=== PATIENT | female | born 1930 | race Caucasian/White ===

== ENCOUNTER 2018-08-11 10:16 | Inpatient (IN) | payer OTHER ==
[~2018-08-11] VITALS: Ht 152.4 cm; Wt 86.0 kg
[~2018-08-11 10:16] MED LIST: ACCUNEB SO1.25 MG/1; ACCUNEB0.63 MG/3 INH; ALBUTEROL2.5 MG/31 IH; ALBUTEROL2.5 MG/31 INH; AMOXICILLIN 50500 M1 PO; APAP500 PO; ASPIRIN81 M2 PO; AVELOX 400 MG400 MG PO; BENAZEPRIL HCL20 MG PO; CALCIUM 600 +1 EAC1 PO; CIPROFLOXACIN500 M3 PO; CLEOCIN HCL150 MG PO; COUMADIN 2 MG TA2 M1 PO; DILTIAZEM 24HR120 M2 PO; FUROSEMIDE 20 M20 M1 PO; KEFLEX500 MG PO; LASIX 40 MG TAB40 M2 PO; LORTAB 5-500 T1 EAC1 PO; NORCO 5-325 TA1 EACH PO; NORVASC10 MG PO; OMEPRAZOLE40 MG PO; PAXIL10 MG PO; PERCOCET 5-3251 EACH PO; POTASSIUM PO; POTASSIUM20 PO; POTASSIUM99 M1 PO; PREDNISONE; PROAIR HFA8.5 GM IH; PROTONIX 20 MG20 MG PO; PROTONIX40 M2 PO; SPIRIVA INH; SUPER B COMPLE1 EAC2 PO; SYMBICORT160 MCG/4. INH; TRAMADOL 50 MG50 MG PO; TRIAMCINOLONE A80 G2 TOP; VESICARE 5 MG TA5 M1 PO; VITAMIN E400 UNI7 PO; XARELTO15 MG PO; ZOFRAN8 MG PO
[2018-08-11 10:17] VITALS: BP 100/50
[2018-08-11 11:29] LABS: HEMATOCRIT 29.4 % (37.0-47.0); HEMOGLOBIN 8.5 gm/dL (12.0-15.0); MCHC 28.8 g/dL (28.0-37.0); MCV 69.6 fL (80.0-100.0); PLATELET COUNT 403 thou/uL (150-400); RBC 4.23 mil/uL (4.20-5.00); RDW 19.9 % (10.5-14.5); WBC 20.9 thou/uL (4.0-11.0)
[2018-08-11 11:37] LABS: ANION GAP 3 mmol/L (7-16); BUN 22 mg/dL (7-18); CALCIUM 8.5 mg/dL (8.5-10.1); CHLORIDE 99 mmol/L (98-107); CO2 38 mmol/L (21-32); CREATININE 1.1 mg/dL (0.6-1.0); GLUCOSE 162 mg/dL (74-106); POTASSIUM 4.2 mmol/L (3.5-5.1); SODIUM 140 mmol/L (136-145)
[2018-08-11 11:45] LABS: ALBUMIN 2.9 g/dL (3.4-5.0); LIPASE 208 U/L (73-393); SGOT 27 U/L (15-37); SGPT 22 U/L (30-65); TOTAL BILIRUBIN 0.7 mg/dL (<0.1-1.0); TOTAL PROTEIN 6.5 g/dL (6.4-8.2); TROPONIN-I <0.06 ng/mL (<0.06)
[2018-08-11 11:53] LABS: BE(vivo) 4.9 mmol/L (-2 to +3); HCO3 31.3 mmol/L (22.0-26.0); PCO2 58.3 mmHg (35.0-45.0); PO2 218.6 mmHg (80.0-100.0); pH 7.348 (7.360-7.450); sO2 99.4 % (92.0-98.0)
[2018-08-11 12:18] VITALS: BP 82/42
[2018-08-11 12:32] VITALS: BP 75/33
[2018-08-11 12:33] LABS: ABSOLUTE NEUTROPHILS 20.3 thou/uL (1.4-8.2); ANISOCYTOSIS 2+; PLATELET ESTIMATE NORMAL
[2018-08-11 12:34] LABS: MICROCYTES 2+
[2018-08-11 12:54] VITALS: BP 137/97
[2018-08-11] MEDS ORDERED: NEURONTIN 300300 M1 PO (13:36)
[2018-08-11 14:08] LABS: INR 3.8; PROTIME 39.5 Seconds (9.3-11.4)
--- NOTE | 2018-08-11 16:26 | NUR ---
ASSUMED PATIENT CARE FROM ED. A&OX4. HARD OF HEARING. USING BEDPAN. PATIENT WAS HYPOTENSIVE IN ED. HYPOTENSION RESOLVED UPON ARRIVAL TO FLOOR. PATIENT STATED THEY WERE DIZZY AND COULD NOT SEE AT HOME. PATIENT LIVES INDEPENDENTLY AT HOME WITH HOME O2. FAMILY HELPS PATIENT WITH MEALS AND LAUNDRY. PATIENT TAKES BREATHING TREATMENTS AT HOME. NO COMPLAINTS OF PAIN. WORKING TOWARDS DC GOALS.
[2018-08-11 16:36] VITALS: BP 99/54
[2018-08-11 20:30] VITALS: BP 104/57
--- NOTE | 2018-08-11 22:03 | EKG ---
[place] [address] [facility] [place] [address] ELECTROCARDIOGRAM REPORT Name: BABS JULIAN IJEOMA Room #: 354-P ADM IN M.R.#: [id number] Admission: 08/11/18 Attend Phys: Elliot Durán MD Discharge: Date of : [birth year] Report #: [id number] REPORT FOR: //name// [facility] ED Test Date: 2018-08-11 Test Time: 11:56:19 Pat Name: BABS JULIAN Department: Room: 354 Gender: F Consumer Insights Intern: : 1930 Requested By: Stef Wang Order Number: [id number] MD: Surinder Root Measurements Intervals [place] Rate: 89 P: FL: QRS: 81 QRSD: 104 T: 56 QT: 396 QTc: 482 Interpretive Statements Atrial fibrillation rightward axis deviation Low voltage, extremity leads Nonspecific ST-T wave changes Baseline wander and V3 Compared to ECG 01/05/2014 11:46:23 Low QRS voltage now present Electronically Signed On 08-11-2018 22:03:32 INFORMATION TECHNOLOGY SECURITY ANALYST by Surinder Root [email or web address] <ELECTRONICALLY SIGNED> By: Surinder Root MD 08/11/18 2203 [id number] Surinder Root MD /EPI
[2018-08-12] VITALS (7 sets, daily range): BP systolic 81–119; BP diastolic 49–90
--- NOTE | 2018-08-12 02:37 | NUR ---
RESTING QUIETLY TONIGHT. ENCOURAGED GETTING PULLED UP IN THE BED AND TURNING. CONTINUES ON IV FLUIDS. REMOVED FROM ISOLATION DUE TO NEGATIVE CDIFF CULTURE. SHE IS VERY FRENDLY AND TALKATIVE. ONLY ONE MICRO SMALL AMOUNT OF LIQ BM TONIGHT. NOT ENOUGH TO SEND OUT FOR AN OCCULT TEST. SHE IS PROGRESSING TOWARD DISCHRAGE GOALS. CAREPLAN REVIEWED.
[2018-08-12 07:04] LABS: CALCIUM 7.8 mg/dL (8.5-10.1); CREATININE 1.3 mg/dL (0.6-1.0)
--- NOTE | 2018-08-12 10:24 | NUR ---
ASSESSMENT: CM REVIEWED CHART AND MET WITH PATIENT AND HER DAUGHTER ALEXANDRU AT THE BEDSIDE. PT IS ALERT AND ORIENTED X4. PT WAS ADMITTED DUE TO DIARRHEA AND C-DIFF IS PENDING. PT RESIDES IN A HOUSE ALONE. PT REPORTS 3 STEPS WITH HANDRAILS TO ENTER THE HOME AND ABOUT 7 STEPS WITH HANDRAILS TO HER BEDROOM. PT REPORTS SHE HAS MULTIPLE WALKERS AT HOME (9 TOTAL). PT STATES SHE HAS A GRAB BAR AND SHOWER BENCH. PT ALSO STATES SHE HAS CONTINUOUS OXYGEN SET UP AT HOME CORNELIO SERNA AND REPORTS BEING ON 3L AT HER BASELINE. PT REPORTS HAVING [facility] IN THE PAST BUT NOT CURRENTLY. PT FEELS SHE MAY BENEFIT FROM HH AGAIN AND WANTED REFERRAL SENT TO [facility]. [facility] NOTIFIED. FAMILY IS VERY SUPPORTIVE. CM WILL CONTINUE TO FOLLOW TO ASSIST NEEDED.
[2018-08-12 10:31] LABS: MCH 20.4 pg (26.0-34.0); MCHC 29.8 g/dL (28.0-37.0); MCV 68.3 fL (80.0-100.0); RBC 3.09 mil/uL (4.20-5.00); RDW 19.8 % (10.5-14.5)
[2018-08-12 10:33] LABS: HEMATOCRIT 21.1 % (37.0-47.0); HEMOGLOBIN 6.3 gm/dL (12.0-15.0)
--- NOTE | 2018-08-12 16:31 | NUR ---
ASSESSMENT CHARTED - MEDS PER OCT - NO CO'S OF PAIN OR NAUSEA. JUANJO CLEAR LIQUID DIET ADVANCED TO REG DIET FOR DINNER. PT WITH LOW HEAM THIS A, - DR MOORE NOTIFIED - ORDER FOR 1 UNIT OF BLOOD TO BE TRANSFUSED GIVEN THIS AFTERNOON. PT UP TO THE CHAIR WITH PHYS THERAPY - AMBULATED A FEW STEPS WITH THE USE OF A WLAKER - TOOK MUCH ENCOURAGMENT TO GET PATIENT TO SIT UP IN THE CHAIR - WNATING TO GO BACK TO BED - DID SIT UP FOR APPROX 1 HOUR. PT INCONTINENT OF URINE / STRESS INCONT - BRIEFS INSITU WHEN UP - EXTERNAL CATH IN PLACE - DAUGHTER FEELING THAT THIS NEEDS TO BE TAKEN AWAY AND PATIENT NEEDS TO GET UP TO USE THE COMMODE. NO CO'S AT THE PRESENT TIME. WILL TRANSFUSE BLOOD WHEN AVIALABLE.
[2018-08-12 17:37] LABS: % SATURATION 5 % (20-39); IRON 14 ug/dL (50-170); TIBC 294 ug/dL (250-450)
[2018-08-12 18:05] LABS: FOLIC ACID 10.9 ng/mL (8.6-58.9)
[2018-08-13] VITALS (22 sets, daily range): BP systolic 95–132; BP diastolic 42–102
--- NOTE | 2018-08-13 04:38 | NUR ---
RESTING QUIETLY TONIGHT. USING THE EXTERNAL CATHETER TONIGHT, SHE IS PLANNING ON GETTING UP TO THE RESTROOM DURING THE DAY. CONTINUES ON IV FLUIDS. TRAMADOL EFFECTIVE FOR PAIN CONTROL. PROGRESSING TOWARD DISCHARGE GOALS.
--- NOTE | 2018-08-13 05:56 | NUR ---
GAVE A ONE TIME DOSE OF XANAX FOR ANXIETY. SHE HAS BEEN MOVING CONSTANLY IN BED TONIGHT. OXYGEN IS OFTEN REMOVED. RESPIRATORY RATE IS INCREASED NAD HER COLOR IS DUSKY. SPOKE WITH FATMATA, RECIEVED ORDER FOR AN ABG NOW.
[2018-08-13 06:27] LABS: BE(vivo) 3.1 mmol/L (-2 to +3); HCO3 32.8 mmol/L (22.0-26.0); PO2 107.7 mmHg (80.0-100.0); sO2 96.3 % (92.0-98.0)
[2018-08-13 06:28] LABS: PCO2 88.5 mmHg (35.0-45.0); pH 7.187 (7.360-7.450)
[2018-08-13 06:34] LABS: HEMOGLOBIN 8.1 gm/dL (12.0-15.0)
[2018-08-13 06:41] LABS: ABSOLUTE NEUTROPHILS 9.7 thou/uL (1.4-8.2); BASOPHILS 0.2 % (0.0-2.0); EOSINOPHILS 2.2 % (0.0-3.0); LYMPHOCYTES 6.7 % (24.0-44.0); MCH 21.7 pg (26.0-34.0); MCHC 30.6 g/dL (28.0-37.0); MONOCYTES 6.4 % (1.0-8.0); PLATELET COUNT 259 thou/uL (150-400); POLYS 84.5 % (36.0-66.0); RBC 3.83 mil/uL (4.20-5.00); RDW 20.7 % (10.5-14.5); WBC 11.5 thou/uL (4.0-11.0)
[2018-08-13 06:51] LABS: CALCIUM 8.2 mg/dL (8.5-10.1); CREATININE 0.8 mg/dL (0.6-1.0); POTASSIUM 4.3 mmol/L (3.5-5.1)
--- NOTE | 2018-08-13 07:21 | NUR ---
0600: PT VERY IRRITABLE AND UNSURE OF WHAT SHE NEEDED. SHE WAS VERY ANXIOUS AND NEEDED INCREASED OXYGEN, AND INCREASED BREATHING. RT NOTIFIED AND SHIPPING POINT INSPECTOR NOTIFIED. PT SENT TO ICU AFTER REVIEWING ABG'S WITH SHIPPING POINT INSPECTOR. DAUGHTER AT BEDSIDE AT TIME OF TRANSFER. ALL CARES AND NEED FOR TRANSFER EXPLAINED TO HER DAUGHTER.
--- NOTE | 2018-08-13 08:11 | NUR ---
Pt TRANSFERRED TO ICU. WILL PLACE ON HOLD AND AWAIT ORDERS TO RESUME WHEN APPROPRIATE
[2018-08-13 08:45] LABS: BE(vivo) 6.2 mmol/L (-2 to +3); HCO3 33.3 mmol/L (22.0-26.0); PO2 88.6 mmHg (80.0-100.0); sO2 95.8 % (92.0-98.0)
[2018-08-13 08:46] LABS: pH 7.324 (7.360-7.450)
[2018-08-13 08:47] LABS: PCO2 65.6 mmHg (35.0-45.0)
--- NOTE | 2018-08-13 15:01 | NUR ---
PT TRANSFERRED TO [facility] THIS MORNING AT SHIFT CHANGE R/T RESP DISTRESS AND ON BIPAP NOW. NO W/E DC PLANNED. CM AVAILABLE TO ASSIST WITH DC NEEDS AND WILL FOLLOW.
--- NOTE | 2018-08-13 15:42 | NUR ---
PT TRANSFERRED TO ICU; THEREFORE, PT IS ON HOLD FOR OCCUPATIONAL THERAPY SERVICES DUE TO CHANGE IN STATUS; O.T. CAN RESUME WITH NEW PHYSICIAN ORDERS APPROPRIATE.
--- NOTE | 2018-08-13 15:55 | NUR ---
PT TRANSFERRED TO ICU ROOM 236 THIS AM FOR FLUID OVERLOAD. PT ARRIVED ASLEEP ON BIPAP, TOLERATING BIPAP WELL. AFIB ON TELE. WHEN PT WOKE WAS A/O X 1, REQUIRED FREQUENT REORIENTATION, AFTERNOON PROGRESSED, PT A/O X 4 AND LESS FORGETFUL. PT'S DAUGHTER AT BEDSIDE AND AWARE OF TRANSFER. ABG IMPROVED, PT OFF BIPAP AND ON 3-4L NC.
--- NOTE | 2018-08-13 18:30 | NUR ---
PT HAD INCREASE SOA AFTER EATING DINNER. PLACED ON BIPAP FOR APPROX 30 MINUTES AND PT REQUESTED TO TAKE OFF. PT ON 4L NC, CONT TO HAVE INCREASED WORK OF BREATHING, SATS >92%.
[2018-08-14] VITALS (19 sets, daily range): BP systolic 114–142; BP diastolic 59–78
[2018-08-14 04:43] LABS: BE(vivo) 10.1 mmol/L (-2 to +3); HCO3 38.5 mmol/L (22.0-26.0); PO2 91.3 mmHg (80.0-100.0); sO2 95.6 % (92.0-98.0)
[2018-08-14 04:44] LABS: PCO2 82.3 mmHg (35.0-45.0); pH 7.288 (7.360-7.450)
--- NOTE | 2018-08-14 06:00 | NUR ---
A VERY DELIGHTFUL LITTLE LADY. AWAKE AND ALERT BRUSH. PT IS ON BIPAP NOW. BUT EARLIER PT COULD ONLY JUANJO THE BIPAP FOR APPROX 10 MINUTES STATED IT WAS SUFFOCATING HER. LASIX 40 MG IV GIVEN. 2000 CC UO THIS SHIFT. REMAINS IN AFIB. LUNGS DIMINISHED. CRITICAL ABGS THIS AM. CALLED TO POUCH MAKING MACHINE OPERATOR Aamir SMITH WILL CONT TO MONITOR
[2018-08-14 07:45] LABS: HEMATOCRIT 28.3 % (37.0-47.0); HEMOGLOBIN 8.7 gm/dL (12.0-15.0); MCH 22.1 pg (26.0-34.0); MCHC 30.7 g/dL (28.0-37.0); MCV 71.7 fL (80.0-100.0); RBC 3.94 mil/uL (4.20-5.00); RDW 20.9 % (10.5-14.5)
[2018-08-14 07:54] LABS: CALCIUM 8.8 mg/dL (8.5-10.1); CREATININE 0.9 mg/dL (0.6-1.0); POTASSIUM 4.1 mmol/L (3.5-5.1)
--- NOTE | 2018-08-14 16:40 | NUR ---
PT IS ALERT AND ORIENTED X4. FORGETFULL AT TIMES. LUNGS ARE CLEAR TO COARSE IN BASES BIALTERAL. A FIB ON THE CARDIAC MONIOTR . EATING A REGULAR DIET. PT HAS A FEMALE CATHETER. ON O2 AT 5LITERS NASAL CANULA OXYGEN SATURATION IS 94 PERCENT. HARD OF HEARING AT TIMES. UP TO CHAIR WITH NURSING STAFF ASSISTANCE. FAMILY AT BEDSIDE FOR SUPPORT. WILL CONTINUE TO ASSESS AND MONITOR PER NURSING
[2018-08-15 03:09] VITALS: BP 145/88
--- NOTE | 2018-08-15 05:13 | NUR ---
POC WITH IVPB ANTIBIOTICS INFUSING. PT WAS ON BIPAP FOR APPROX 5 1/2 HOURS THIS EVENING. SHE TOOK MASK OFF AND REQUESTED TO BACK ON 6 LITERS VIA NC. FEMALE EXTERNAL CATH IN PLACE AND FUNCTIONING. PT CAN HELP ROTATE AND MOVE HER SELF IN BED. HOURLY ROUNDING. PT CAN ALSO CALL APPROPRIATELY WITH CALL LIGHT. VSS AND OXYGEN SAT IS ABOVE 90. REPLACED FINGER PROBE. PT STATES NO PAIN OR NAUSEA.
[2018-08-15 06:24] LABS: HEMATOCRIT 27.5 % (37.0-47.0); HEMOGLOBIN 8.4 gm/dL (12.0-15.0); MCH 21.9 pg (26.0-34.0); MCHC 30.7 g/dL (28.0-37.0); MCV 71.6 fL (80.0-100.0); RBC 3.85 mil/uL (4.20-5.00); RDW 21.3 % (10.5-14.5); WBC 8.3 thou/uL (4.0-11.0)
[2018-08-15 06:36] LABS: PROTIME 17.1 Seconds (9.3-11.4)
[2018-08-15 06:37] LABS: INR 1.6
[2018-08-15 06:45] LABS: CALCIUM 8.9 mg/dL (8.5-10.1); CREATININE 0.9 mg/dL (0.6-1.0); POTASSIUM 4.2 mmol/L (3.5-5.1)
[2018-08-15 07:31] VITALS: BP 144/86
[2018-08-15 11:18] VITALS: BP 136/84
[2018-08-15 16:34] VITALS: BP 147/99
--- NOTE | 2018-08-15 17:56 | NUR ---
PATIENT REMAINS ON OXYGEN 4L AND O2 SAT IS GREATER THAN 94%. SHE IS ALERT ORIENTED X4. DOES NOT SEEM TO BE IN PAIN AT THIS TIME. WILL CONT WITH PLAN OF CARE.
[2018-08-15 19:30] VITALS: BP 140/82
[2018-08-16] VITALS (8 sets, daily range): BP systolic 135–172; BP diastolic 77–120
--- NOTE | 2018-08-16 05:14 | NUR ---
Patient making slow progress towards outcome goals. Tolerated BIPAP tonight sat 95%. Vital signs and rhythm stable. Dood pain conteol with Tramadol. High fall risk, precautions in place. Uses call light appropriately for needs. Has periods of anxiety requiring a lot of TLC.
[2018-08-16 11:25] LABS: HEMATOCRIT 29.9 % (37.0-47.0); HEMOGLOBIN 9.2 gm/dL (12.0-15.0); MCH 22.1 pg (26.0-34.0); MCHC 30.8 g/dL (28.0-37.0); MCV 71.9 fL (80.0-100.0); PLATELET COUNT 282 thou/uL (150-400); RBC 4.15 mil/uL (4.20-5.00); RDW 22.6 % (10.5-14.5); WBC 11.6 thou/uL (4.0-11.0)
[2018-08-16 11:36] LABS: CALCIUM 9.2 mg/dL (8.5-10.1); CREATININE 1.3 mg/dL (0.6-1.0); POTASSIUM 4.2 mmol/L (3.5-5.1)
[2018-08-16 12:04] LABS: ABSOLUTE NEUTROPHILS 10.7 thou/uL (1.4-8.2); NUCLEATED RBCS 2 /100WBC
[2018-08-16 12:14] LABS: ANISOCYTOSIS 3+; HYPOCHROMASIA 2+; MICROCYTES 1+
[2018-08-16 12:15] LABS: OVALOCYTES FEW
[2018-08-17 04:25] LABS: CREATININE 1.1 mg/dL (0.6-1.0); HEMATOCRIT 26.7 % (37.0-47.0); HEMOGLOBIN 8.4 gm/dL (12.0-15.0); MCH 22.4 pg (26.0-34.0); MCHC 31.3 g/dL (28.0-37.0); MCV 71.4 fL (80.0-100.0); RBC 3.74 mil/uL (4.20-5.00); RDW 22.7 % (10.5-14.5); WBC 9.4 thou/uL (4.0-11.0)
[2018-08-17 04:50] VITALS: BP 90/55
[2018-08-17 05:10] VITALS: BP 143/95
--- NOTE | 2018-08-17 05:44 | NUR ---
BIPAP WAS ON THE PT FROM 2130 TO 0500. PT TOLERATED IT WELL. URINE OUTPUT WAS 850. FOLLOWING POC FOR IVPB ANTIBIOTICS. PT USES CALL LIGHT EFFECTIVELY AND CAN STATE HER NEEDS. PT BLOOD PRESSURE A LITTLE ELEVATED, WILL CONTINUE TO FOLLOW.
[2018-08-17 08:09] VITALS: BP 155/95
--- NOTE | 2018-08-17 08:53 | NUR ---
ASSUMED CARE OF PT AROUND 0715, MARYANNE W/ACTIVITY, A&0X4, ASKS MANY QUESTIONS BEFORE GETTING THE ANSWERS, THEN APOLOGIZES FOR ASKING QUESTIONS, ENCOURAGED HER TO ASK ANYTHING WE ARE HERE FOR HER. WANTS HER HS BENAZ FOR HTN FOR HS HERE IN THE HOSPITAL. NOT ON EMAR BUT IN MED REQ, WILL CALL PHYSICIAN TO ASK. B/P ARE HIGHER THAN THEY ARE FOR HER, PER HER REPORT. HAS CONT PULSE OX ON, LET HER KNOW THAT IS FOR HER HS BIPAP IF SHE'D LIKE TO REMOVE. SHE DECLINES AT THIS TIME SHE IS EATING. HAS FEMALE EXT CATHETER W/ALICE URINE RETURN, MM HG SET AT 80-90, DROPPED DOWN A LITTLE LOWER, COUGH, ENCOURAGED W/DEEP SLOW INHALATIONS/EXHALATIONS. ENCOURAGED HER TO USE CALL LIGHT FOR ANY NEEDS
[2018-08-17 11:59] VITALS: BP 132/77
--- NOTE | 2018-08-17 12:37 | NUR ---
PT'S STOOL: ADMITTED W/DIARRHEA, HASN'T HAD BM SINCE, STATES SHE HASN'T HAD ANY APPETITE NOR HAS SHE BEEN UP AND AROUND
--- NOTE | 2018-08-17 13:01 | NUR ---
Following for d/c planning needs. Pt evaluated by [facility]. Awaiting insurance authorization. Pt and daughter given list of SNF in the event insurance denies rehab.
[2018-08-17 15:58] VITALS: BP 124/75
[2018-08-17 19:51] VITALS: BP 128/50
[2018-08-18 04:08] LABS: CALCIUM 8.7 mg/dL (8.5-10.1); CREATININE 1.3 mg/dL (0.6-1.0); POTASSIUM 4.1 mmol/L (3.5-5.1)
[2018-08-18 04:10] LABS: HEMATOCRIT 26.9 % (37.0-47.0); HEMOGLOBIN 8.4 gm/dL (12.0-15.0); MCH 22.6 pg (26.0-34.0); MCHC 31.3 g/dL (28.0-37.0); MCV 72.4 fL (80.0-100.0); RBC 3.71 mil/uL (4.20-5.00); RDW 22.5 % (10.5-14.5); WBC 9.8 thou/uL (4.0-11.0)
--- NOTE | 2018-08-18 04:46 | NUR ---
PATIENT IS PROGRESSING SLOWLY IN HER CARE PLAN. VITAL SIGNS STABLE WITH PATIENT HAVING NO COMPLAINTS OF NAUSEA. PATIENT DID COMPLAIN OF CHRONIC PAIN IN NECK AND SHOULDER WHICH WAS TREATED WITH MEDICATION AND REPOSITIONING. FULLY ORIENTED, PATIENT IS ABLE TO PARTICIPATE IN CARE AND CALL APPROPRIATELY FOR NEEDS. BREATHING WAS STABLE EVIDENCED BY READINGS ON CONTINUOUS PULSE OX. PATIENT WAS ABLE TO TOLERATE BIPAP OVERNIGHT. NURSE WILL ATTEMPT TO MOVE PATIENT TO CHAIR PRIOR TO SHIFT CHANGE IF SHE IS WILLING. CONTINUE PLAN OF CARE.
[2018-08-18 05:20] VITALS: BP 139/70
[2018-08-18 08:08] VITALS: BP 143/117
--- NOTE | 2018-08-18 09:13 | NUR ---
5 [place] RESOURCE EFFICIENCY MANAGER (FILIBERTO) REQUESTED AUTHORIZATION FOR ACUTE INPATIENT REHAB UNIT STAY ON 08/17/2018. THIS DATE, 08/18/18, RESOURCE EFFICIENCY MANAGER ([place]) PHONES [facility] TO CHECK ON STATUS OF REQUEST. SPOKE WITH LIONEL CHAVARRIA ([phone]) WHO STATES THIS CASE IS STILL IN REVIEW AND THAT SHE IS UNSURE, HOWEVER, HOPEFUL, THAT A DETERMINATION WILL BE MADE THIS DATE. WILL AWAIT DETERMINATION FROM [facility].
--- NOTE | 2018-08-18 09:55 | 2DMMODE ---
[facility] [address] [place] [address] 2 D/M-MODE ECHOCARDIOGRAM Name: BABS JULIAN SAINT PETER Room #: 359-P ADM IN M.R.#: [id number] Admission: 08/11/18 Attend Phys: Elliot Durán MD Discharge: Date of : [birth year] Date of Service: 08/18/18 0954 Report #: [id number] THIS REPORT FOR: //name// APPROVED REPORT Study performed: 08/18/2018 09:03:50 EXAM: Comprehensive 2D, Doppler, and color-flow Echocardiogram Patient Location: Bedside Room #: 359 Status: routine BSA: 1.83 HR: 105 bpm BP: 143/117 mmHg Rhythm: Atrial Fibrillation Other Information Study Quality: Adequate Indications Fluid overload, PHTN, CHF, respiratory failure. Hx: Afib, severe COPD, HTN. 2D Dimensions RVDd: 43.81 mm IVSd: 10.85 (7-11mm) LVOT Diam: 19.36 (18-24mm) LVDd: 38.94 mm PWd: 10.66 (7-11mm) LVDs: 25.58 (25-40mm) Aortic Root: 28.86 mm Volumes Left Atrial Volume (Systole) Single Plane 4CH: 69.46 mL Single Plane 2CH: 67.01 mL LA ESV Index: 40.00 mL/m2 Aortic Valve AoV Peak Anthony.: 1.68 m/s AO Peak Gr.: 11.30 mmHg LVOT Max P.63 mmHg LVOT Max V: 1.19 m/s JER Vmax: 2.08 cm2 Mitral Valve MV Decel. Time: 189.79 ms MV E Max Anthony.: 1.49 m/s [facility] [address] [place] [address] 2 D/M-MODE ECHOCARDIOGRAM Name: BABS JULIAN SAINT PETER Room #: 359-P [facility] IN ..#: [id number] Admission: 08/11/18 Attend Phys: Elliot Durán MD Discharge: Date of : [birth year] Date of Service: 08/18/18 0954 Report #: [id number] Pulmonary Valve PV Peak Anthony.: 1.10 m/s PV Peak Gr.: 4.85 mmHg Tricuspid Valve TR Peak Anthony.: 3.15 m/s RAP Estimate: 5.00 mmHg TR Peak Gr.: 40.00 mmHg PA Pressure: 45.00 mmHg Left Ventricle The left ventricle is normal size. There is normal LV segmental wall motion. There is normal left ventricular wall thickness. Left ventricular systolic function is normal. LVEF is 60-65%. This study is not technically sufficient to allow evaluation of the LV diastolic function due to atrial fibrillation. Right Ventricle The right ventricle is normal size. The right ventricular systolic function is normal. Atria Left atrium is moderately dilated. Right atrium is moderately dilated. Aortic Valve The aortic valve is mildly sclerotic, trileaflet. Trace aortic regurgitation. There is no aortic valvular stenosis. Mitral Valve Mitral valve leaflets are mildly thickened. Moderate mitral annular calcification Mild mitral regurgitation. No evidence of mitral valve stenosis. Tricuspid Valve The tricuspid valve is normal in structure. Mild to moderate tricuspid regurgitation. Estimated PAP is 45 mmHg. Pulmonic Valve The pulmonary valve is normal in structure. Trace pulmonic regurgitation. Great Vessels The aortic root is normal in size. Ascending aorta is not well visualized. IVC is normal in size and collapses >50% with inspiration. [facility] [address] [place] [address] 2 D/M-MODE ECHOCARDIOGRAM Name: BABS JULIAN IJEOMA Room #: 359-P ADM IN M.R.#: [id number] Admission: 08/11/18 Attend Phys: Elliot Durán MD Discharge: Date of : [birth year] Date of Service: 08/18/18 0954 Report #: [id number] Pericardium There is no pericardial effusion. <Conclusion> Left ventricular systolic function is normal. There is normal LV segmental wall motion. LVEF 60-65%. Both atria are moderately dilated. The aortic valve is mildly sclerotic, trileaflet. Trace aortic regurgitation. Mitral valve leaflets are mildly thickened. Moderate mitral annular calcification Mild mitral regurgitation. Mild to moderate tricuspid regurgitation. Estimated pulmonary artery pressure of 45 mmHg. There is no pericardial effusion. <ELECTRONICALLY SIGNED> By: Williams Marquez MD, FACC 08/18/18953 3 3 Williams Marquez MD, FAC /INF
[2018-08-18 11:34] VITALS: BP 120/73
--- NOTE | 2018-08-18 13:47 | NUR ---
Nutrition: pt admitted with SOA, diarrhea (resolved), HTN. Seen due to LOS. Chart reviewed. Pt reports adequate appetite and no recent weight changes. Pt with hx CHF, recent increased swelling in legs. Watches Na+ at home but prefers to be on regular diet here. Would recommend heart healthy diet. Otherwise low risk.
--- NOTE | 2018-08-18 16:00 | NUR ---
ON-GOING ASSESSMENT: CM REVIEWED CHART AND MET WITH PATIENT AT THE BEDSIDE. CM WAS NOTIFIED BY Shanelle DUNNE THAT INSURANCE IS REQUESTING FURTHER IN-DETAIL PT/OT EVALS. 5NLIASON STATING SHE HAS REQUESTED PT/OT TO GO BACK IN AND SEE PATIENT. CM MET WITH PATIENT AT THE BEDSIDE AND DISCUSSED. PT STATING SHE IS REALLY HOPEFUL SHE WILL BE ABLE TO GO TO ACUTE REHAB AND REPORTS SHE FEELS SHE REALLY NEEDS IT. CM CONTACTED PATIENTS DAUGHTER TO UPDATE. CM WILL CONTINUE TO FOLLOW TO ASSIST NEEDED.
[2018-08-18 16:30] VITALS: BP 114/72
--- NOTE | 2018-08-18 18:45 | NUR ---
Assumed care of Pt at 0700. Pt alert and oriented in no acute distress, feels that swelling is worsening. breathing comfortably on home dose O2. dim/crackles to auscultation. physician notified - brian vega ordered - IV abx d/c'd. up w/ 1 assist to [facility]. family at bedside. anticipating d/c to Rehab soon. pt progressing toward poc goals.
[2018-08-18 19:07] VITALS: BP 145/61
[2018-08-19 03:27] VITALS: BP 140/69
--- NOTE | 2018-08-19 03:43 | NUR ---
ASSUMED CARE AT 1900. PT AO X 4. PAIN 6/10, PRN TRAMADOL. WAS ON 3 L NC AND BIPAP DURING THE NIGHT. UTILIZING FEMALE EXTERNAL CATHETER FOR INCONTINENCE. AFIB ON MONITOR. IRA HORSE OFF DURING THE NIGHT. PT SLEPT COMFORTABLY THROUGHT THE NIGHT. WILL FOLLOW POC.
[2018-08-19 08:05] VITALS: BP 137/92
[2018-08-19 10:12] LABS: HEMATOCRIT 31.2 % (37.0-47.0); HEMOGLOBIN 9.3 gm/dL (12.0-15.0); MCH 22.3 pg (26.0-34.0); MCV 74.5 fL (80.0-100.0); RBC 4.19 mil/uL (4.20-5.00); RDW 24.1 % (10.5-14.5); WBC 12.2 thou/uL (4.0-11.0)
[2018-08-19 10:25] LABS: CREATININE 1.4 mg/dL (0.6-1.0); POTASSIUM 4.7 mmol/L (3.5-5.1)
--- NOTE | 2018-08-19 10:31 | NUR ---
5 [place] LEAD MANUFACTURING TECHNICIAN REQUESTED AUTHORIZATION WITH [facility] FOR AN ACUTE INPATIENT REHAB UNIT STAY; LEFT VOICE MAIL FOR LIONEL YESTERDAY, 08/18/18, INDICATING NEW PT AND OT NOTES WERE AVAILABLE WELL PLAN FOR GI TO MONITOR H&H. PHONED [facility] AGAIN THIS A.M. TO ENSURE REQUEST WAS RECEIVED; LEFT VOICE MAIL FOR LIONEL AT [phone]. WILL CONTINUE TO AWAIT DETERMINATION FROM [facility] [employer]. THANK YOU FOR THIS REFERRAL.
--- NOTE | 2018-08-19 15:21 | NUR ---
PT ALERT AND ORIENTED TIMES FOUR. VSS, 97%4L, AFIB CONTROLLED ON TELE. PT C/O THIGH PAIN, PRN PAIN MEDICATION GIVEN WITH GOOD RELEIF. PT WORKED WELL WITH PT/OT TODAY UP SITTING IN THE CHAIR OR MOST OF THE SHIFT. PT TOLERATES MEDS AND MEALS. FAMILY AT BEDSIDE. PT SLOWLY PROGRESSING TOWRADS POC GOALS.
[2018-08-19 15:26] VITALS: BP 133/75
--- NOTE | 2018-08-19 15:54 | NUR ---
ON-GOING ASSESSMENT: CM SPOKE WITH 5N LIASON WHO STATES SHE WAS WAITING TO SPEAK WITH ATTENDING INSURANCE HAD QUESTIONS REGARDING PLANS OF CARE FOR PATIENT. ATTENDING STATING PATIENT IS NOT MEDICALLY READY FOR [facility] TODAY CARDS AND PULM CONSULTED. CM WILL CONTINUE TO FOLLOW.
[2018-08-19 19:55] VITALS: BP 119/77
[2018-08-20 04:55] VITALS: BP 113/67
--- NOTE | 2018-08-20 05:19 | NUR ---
PT MAKING SLOW PROGRESS TOWARDS GOALS. PT CTA BL UPPER LOBES AND FAINTLY COARSE SOUNDS BL LOWER LOBES. ON O2 AT 4L PER NC, BIPAP OVERNIGHT. HAS DENIED ANY SOA WHILE AT REST. HAS BEEN ABLE TO SPEAK IN FULL SENTENCES WITH SLIGHT SOA NOTED. 1-2+ BL LE EDEMA NOTED.
[2018-08-20 05:33] LABS: HEMATOCRIT 29.7 % (37.0-47.0); HEMOGLOBIN 8.9 gm/dL (12.0-15.0); MCH 22.1 pg (26.0-34.0); MCHC 29.9 g/dL (28.0-37.0); RBC 4.01 mil/uL (4.20-5.00); RDW 24.1 % (10.5-14.5); WBC 13.8 thou/uL (4.0-11.0)
[2018-08-20 05:47] LABS: CALCIUM 9.2 mg/dL (8.5-10.1); CREATININE 1.3 mg/dL (0.6-1.0); MAGNESIUM 2.1 mg/dL (1.8-2.4); POTASSIUM 4.3 mmol/L (3.5-5.1)
[2018-08-20 07:32] VITALS: BP 138/84
--- NOTE | 2018-08-20 09:52 | NUR ---
5 [place] ABRASIVE MIXER HELPER PHONES [employer] ( ) TO INITIATE AUTHORIZATION FOR AN ACUTE INPATIENT REHAB UNIT STAY. SPOKE WITH MAX AT 0945 WHO PROVIDES THE FOLLOWING PENDING CASE #: [id number]. ADDITIONALLY PHONED LIONEL, [facility], AT [phone]. LEFT VOICE MAIL MESSAGE FOR LIONEL NOTIFYING HER THAT WE ARE REQUESTING AUTHORIZATION FOR AN ACUTE INPATIENT REHAB UNIT STAY EFFECTIVE TODAY, 08/20/2018. PROVIDED PENDING CASE NUMBER. DR. YANG AND GERMAN ABBASI, FINISH ROLLS OPERATOR INDICATE PATIENT IS MEDICALLY STABLE FOR ACUTE REHAB UNIT THIS DATE, 08/20/18. WILL AWAIT DETERMINATION FROM [employer]. THANK YOU FOR THIS REFERRAL.
[2018-08-20 11:20] VITALS: BP 112/70
--- NOTE | 2018-08-20 13:33 | NUR ---
5N [place] OPERATOR PHONES LIONEL PICHARDO, AT [phone] TO CHECK THE STATUS OF REQUEST FOR IRF STAY AT APPROXIMATELY 1325. LIONEL INDICATES CLINICAL REVIEW IS IN PROCESS AND CASE HAS NOT YET GONE TO THE SOFTWARE TEST AUTOMATION ENGINEER. WILL CONTINUE TO AWAIT MARINO'S DETERMINATION.
--- NOTE | 2018-08-20 14:12 | NUR ---
ON-GOING ASSESSMENT: CM SPOKE WITH 5N VIBHA WHO STATES THEY SUBMITTED AGAIN FOR AUTH THIS AM. PT IS TO DISCHARGE TO [facility] ACUTE [facility]HAB PENDING INSURANCE AUTH. CM WILL CONTINUE TO FOLLOW.
--- NOTE | 2018-08-20 15:48 | NUR ---
RECEIVED VOICE MAIL MESSAGE FROM LIONEL PICHARDO ([phone]) STATING THE CONTROLLER OPERATIONS AND HR MANAGER HAS DENIED AN ACUTE INPATIENT REHAB UNIT STAY. STATED THAT THE PATIENT'S THERAPY NEEDS CAN BE MET IN A DETENTION FACILITY ENVIRONMENT. OFFERED [id number] REVIEW WITH PHYSICIAN; TO SCHEDULE [id number], PHONE [phone]. [id number] MUST BE COMPLETED BY NOON ON 08/23/18.
[2018-08-20 16:00] VITALS: BP 119/71
--- NOTE | 2018-08-20 18:30 | NUR ---
ASSUMED PATIENT CARE AT 0700. A/O X4. PLEASANT. UP TO CHAIR MOST TIME. BLE 3+ EDEMA. TOLERATED ON 4L/NC. UP WALK WITH PT. PROGRESSING TOWARDS POC GOALS.
[2018-08-20 19:30] VITALS: BP 114/66
[2018-08-21 03:40] VITALS: BP 127/82
[2018-08-21 05:37] LABS: HEMATOCRIT 32.2 % (37.0-47.0); HEMOGLOBIN 9.6 gm/dL (12.0-15.0); MCH 22.4 pg (26.0-34.0); MCHC 29.6 g/dL (28.0-37.0); MCV 75.5 fL (80.0-100.0); RBC 4.27 mil/uL (4.20-5.00); RDW 25.3 % (10.5-14.5); WBC 14.7 thou/uL (4.0-11.0)
[2018-08-21 05:51] LABS: CALCIUM 9.1 mg/dL (8.5-10.1); CREATININE 1.1 mg/dL (0.6-1.0); POTASSIUM 4.8 mmol/L (3.5-5.1)
--- NOTE | 2018-08-21 06:33 | NUR ---
ASSUMED CARE OF PT AT 1900. A&Ox4, COOPERATIVE. VS STABLE. LUNG SOUNDS WHEEZY AND DIMINISHED. ON BIPAP OVER NOC, TOLERATED WELL. 3+ SUNIL LE/FOOT EDEMA AFTER SLEEPING W/ FEET ELEVATED ON PILLOWS. PROGRESSING WELL TOWARDS POC GOALS.
[2018-08-21 08:06] VITALS: BP 122/71
[2018-08-21 12:25] VITALS: BP 128/76
[2018-08-21 12:44] VITALS: BP 122/65
[2018-08-21 15:26] VITALS: BP 116/77
--- NOTE | 2018-08-21 16:15 | NUR ---
care of pt assumed this am @ 0700. pt verbalized her desire to be more active today, so that it will help her transition back home quicker and healthier. pt noted to ambulate w/ pt today (use of o2, walker and gait belt) in hallways. pt ambulated w/ rn after lunch today (50 feet before she became soa and requested to go back to her room). pt sat up in her chair for lunch today (~3.5 hours). pt requested brian hose on to help w/ the edema she has in her les, but pt request brian hose off when she goes to be tonight. pt aware of her need to observe her po fluid intake as it relates to her edema and chf. pt w/ soa w/ exertion, o2 @ 3-4 lt per nc today. pt to have bipap w/ continuous oximetry monitoring at [facility]. new iv access obtained today to rt hand due to leaking from insertion site of old iv access site (rt wrist). pt has called food service lead to make adjustments to her menu items today. pt w/ effective use of female external cathater and briefs.
[2018-08-21 20:15] VITALS: BP 128/75
--- NOTE | 2018-08-22 04:34 | NUR ---
ASSUMED CARE OF PT AT 1900. A&Ox4, COOPERATIVE. VS STABLE DOCUMENTED, CONTINUES A FIB ON TELE. 4L VIA NC DURING DAY, AND BIPAP AT OVER NOC, TOLERATING WELL. CONT PULSE OX W/ BIPAP, SAT'S 98-99%. IRA HOSE OFF OVER NOC. BLE ELEVATED ON PILLOWS. PT IS LIMITING HER INTAKE OF FLUIDS. NO ACUTE DISTRESS THIS SHIFT. PROGRESSING WELL TOWARDS POC GOALS.
[2018-08-22 05:00] VITALS: BP 140/97
[2018-08-22 06:03] LABS: HEMATOCRIT 31.4 % (37.0-47.0); HEMOGLOBIN 9.6 gm/dL (12.0-15.0); MCHC 30.6 g/dL (28.0-37.0); MCV 75.2 fL (80.0-100.0); RBC 4.18 mil/uL (4.20-5.00); RDW 26.1 % (10.5-14.5); WBC 13.7 thou/uL (4.0-11.0)
[2018-08-22 06:09] LABS: CREATININE 1.1 mg/dL (0.6-1.0); MAGNESIUM 1.9 mg/dL (1.8-2.4); POTASSIUM 4.7 mmol/L (3.5-5.1)
[2018-08-22 08:05] VITALS: BP 131/69
[2018-08-22 12:07] VITALS: BP 135/62
[2018-08-22 16:49] VITALS: BP 144/69
--- NOTE | 2018-08-22 18:16 | NUR ---
ASSUMED PATIENT CARE AT 0700. A/O X4. WALK WITH PATIENT THREE TIMES FROM ROOM TO THE END OF HALLWAY THEN BACK ROOM. ELEVATED BLE. 2+ EDEMA BLE. TOLERATED ON 4L/NC. SOB WITH EXERTION. PROGRESSING TOWARDS POC GOALS.
[2018-08-22 19:20] VITALS: BP 123/58
[2018-08-23 04:15] VITALS: BP 155/91
[2018-08-23 04:37] LABS: HEMOGLOBIN 9.1 gm/dL (12.0-15.0); MCHC 30.2 g/dL (28.0-37.0); MCV 75.9 fL (80.0-100.0); RBC 3.94 mil/uL (4.20-5.00); RDW 26.8 % (10.5-14.5); WBC 14.1 thou/uL (4.0-11.0)
[2018-08-23 04:52] LABS: CALCIUM 8.9 mg/dL (8.5-10.1); CREATININE 1.1 mg/dL (0.6-1.0); MAGNESIUM 1.9 mg/dL (1.8-2.4); POTASSIUM 4.3 mmol/L (3.5-5.1)
--- NOTE | 2018-08-23 07:12 | NUR ---
PT TOOK A WALK TONIGHT WITH NURSE AID. SHE SAT AT EDGE OF BED DURING SHIFT CHANGE THEN ASKED FOR A WALK ABOUT TWO HOURS AFTER SITTING AT EDGE OF THE BED. SHE COMPLAINED THAT HER LEG RT LEG WAS ACHING AFTER HER WALK. SHE TOOK A TRAMADOL AND WENT TO SLEEP WITH HER CPAP. NO ROUSING THROUGH THE NIGHT. STATED THAT SHE SLEPT WELL TO PIG MACHINE CRANE OPERATOR NURSE.
[2018-08-23 07:30] VITALS: BP 131/74
--- NOTE | 2018-08-23 10:18 | NUR ---
ON-GOING ASSESSMENT: CHRIS WAS NOTIFIED BY Shanelle DUNNE THAT [facility] HAS BEEN DENIED BY INSURANCE AND A PEER TO PEER CAN BE OFFERED IF ATTENDING CALLS BY 12PM Thursday08/23/18. CM REVIEWED WITH ATTENDING AND PLAN IS TO COMPLETE THE PEER TO PEER TODAY. CM CONTACTED PEER TO PEER LINE [phone] AT 10:09 TO SCHEDULE PEER TO PEER WITH OUR ATTENDING AND LEFT HIS CONTACT INFORMATION. RESULTS OF PEER TO PEER ARE PENDING. CM REACHED OUT TO PATIENTS DAUGHTER AND IF 5[facility] ACUTE REHAB DENIAL IS UPHELD, SHE WANTED A REFERRAL SENT TO [facility] AND [facility] BACKUP. CM FAXED REFERRALS. CM WILL CONTINUE TO FOLLOW PENDING RESULTS OF PEER TO PEER.
[2018-08-23 11:21] VITALS: BP 101/61
[2018-08-23 15:10] VITALS: BP 98/51
--- NOTE | 2018-08-23 18:15 | NUR ---
ASSUMED PATIENT CARE AT 0700. A/O X4. UP WALK IN HALLWAY WITH WALKER. DENIES PAIN. SOB WITH EXERTION. PROGRESSING TOWARDS POC GOALS.
[2018-08-23 20:20] VITALS: BP 126/80
--- NOTE | 2018-08-24 04:49 | NUR ---
BIPAP BEING TOLERATED WELL TONIGHT BY PT. PT CAN STATE THAT IT IS GETTING EASIER EVERY NIGHT TO ALLOW MORE TIME ON IT. FOLLOWING POC AND KEEPING BED AT 30 DEGREES. EXTERNAL CATH IS IN PLACE AND WORKING. PT STATES NO N/V. ORAL PAIN MEDICATION GIVEN 1X. HOURLY ROUNDING.
[2018-08-24 06:10] VITALS: BP 141/63
[2018-08-24 07:25] VITALS: BP 135/69
--- NOTE | 2018-08-24 10:14 | NUR ---
ON-GOING ASSESSMENT: CM REVIEWED CHART AND SPOKE WITH ATTENDING WHO STATES THAT DENIAL FOR [facility] WAS UPHELD DUE UNCERTANTITY ABOUT FAMILY SUPPORT AT HOME. PATIENT HAS VERY GOOD FAMILY SUPPORT. PATIENTS DAUGHTER PHONG IS A RESPIRATORY THERAPIST AND STATES SHE IS ABLE TO STAY WITH HER MOTHER IF NEEDED. DAUGHTER ALSO STATES HER WORKS FROM HOME SO IS ABLE TO STAY WITH HER IF NEEDED WHEN PHONG IS NOT THERE. CM LEFT CM WITH LIONEL AT [place] FOR AN IMMEDIATE RECONSIDERATION. CHRIS ALSO CONTACTED THE PEER TO PEER LINE [phone] REQUESTING AN IMMEDIATE RECONSIDERATION FOR 5[facility].
[2018-08-24 11:23] VITALS: BP 111/55
[2018-08-24 15:27] VITALS: BP 120/61
--- NOTE | 2018-08-24 16:00 | NUR ---
ASSUMED PATIENT CARE AT 0715. A&OX4. VERY PLEASANT. BIPAP HS WITH CONTINUOUS PULSE OX. NC DURING THE DAY. UP WITH ASSISTX1 WITH WALKER AND GAIT BELT. WORKING WITH OT AND PT. PATIENT STILL NOT BACK TO BASELINE PHYSICALLY. PATIENT WOULD BENEFIT FROM A REHAB STAY BEFORE HOME. [facility] WILLING TO ACCEPT PATIENT PENDING INSURANCE APPROVAL. INSURANCE HAS DENIED AND CM AND DOCTORS CURRENTLY GOING THROUGH A RAPID APPEAL. WILL KNOW RESULTS OF APPEAL IN 1-2 DAYS.
[2018-08-24 18:57] VITALS: BP 115/69
--- NOTE | 2018-08-25 02:50 | NUR ---
PATIENT AT DC GOALS, JUST WAITING ON INSURANCE APPROVALS. BIPAP ON ALL NIGHT WITH NO ANXIETY. HOURLY ROUNDING.
[2018-08-25 03:48] VITALS: BP 132/82
[2018-08-25 07:38] VITALS: BP 138/79
[2018-08-25 11:07] VITALS: BP 101/70
--- NOTE | 2018-08-25 14:53 | NUR ---
Nutrition: Pt seen per followup. Continues on regular diet with no compliants, eating well. Complimentary of staff and food. No new weight. Awaiting discharge based on insurance authorization. Low nutrition risk.
[2018-08-25 15:26] VITALS: BP 129/95
--- NOTE | 2018-08-25 16:44 | NUR ---
Assumed care of Pt at 0700. Pt AOx4 in no acute distress. Reports feelign congested today. fair cough effort. diminished lung sounds on supplemental oxygen. Up w/ physical therapy. SItting in chair for most of day. afib on telemetry. stable for d/c pending insurance.
[2018-08-25 20:30] VITALS: BP 133/60
--- NOTE | 2018-08-26 04:55 | NUR ---
PATIENT IS ADVANCING IN HER CARE PLAN. VITAL SIGNS STABLE THROUGHOUT SHIFT WITH PATIENT HAVING NO COMPLAINTS OF NAUSEA. PATIENT DID COMPLAIN OF CHRONIC BACK PAIN FOR WHICH SHE RECEIVED PRN MEDICATION. PATIENT IS ALERT AND ORIENTED AND ABLE TO CALL APPROPRIATELY FOR REQUESTS. BREATHING STABLE ON OXYGEN EVIDENCED BY SPOT OXYGENATION CHECKS. PATIENT DID TOLERATE THE BIPAP OVERNIGHT. FEMALE EXTERNAL CATHETER WITH CONTINENCE CHECKS AND BARRIER CREAM APPLICATION TO PROTECT SKIN. PATIENT WAS ABLE TO AMBULATE TO BEDSIDE COMMODE WITH ASSISTANCE INCIDENT FREE. NURSE TRIED TO TALK PATIENT INTO GOING TO RESTROOM TO VOID BUT PATIENT WAS RESISTANT. PATIENT IS STILL AWAITING INSURANCE AUTHORIZATION FOR DISCHARGE TO FACILITY. CONTINUE PLAN OF CARE.
[2018-08-26 05:42] VITALS: BP 140/77
[2018-08-26 05:52] LABS: HEMATOCRIT 28.1 % (37.0-47.0); HEMOGLOBIN 8.4 gm/dL (12.0-15.0); MCH 22.8 pg (26.0-34.0); MCHC 29.9 g/dL (28.0-37.0); MCV 76.4 fL (80.0-100.0); RBC 3.68 mil/uL (4.20-5.00); RDW 27.7 % (10.5-14.5); WBC 17.5 thou/uL (4.0-11.0)
[2018-08-26 06:14] LABS: CALCIUM 8.5 mg/dL (8.5-10.1); CREATININE 0.8 mg/dL (0.6-1.0); POTASSIUM 4.1 mmol/L (3.5-5.1)
[2018-08-26 07:40] VITALS: BP 135/115
--- NOTE | 2018-08-26 10:53 | NUR ---
ON-GOING ASSESSMENT: CHRIS ATTEMPTED TO CONTACT [id number] TO GET AN UPDATE ON THE STATUS OF THE EXPEDITED APPEAL. CHRIS CONTACTED AND WAS ON HOLD FOR 42 MINUTES IN ATTEMPTS TO GET THE STATUS. PER LESLY BERUMEN STATES THE CASE IS STILL UNDER REVIEW AND IS PENDING AND THEY HAVE TO GIVE US A DECISION BY 08/27/2018. (REF# FOR THIS CALL [id number]). CM UPDATED PATIENTS DAUGHTER.
[2018-08-26 12:05] VITALS: BP 127/69
[2018-08-26 14:49] VITALS: BP 108/62
[2018-08-26 19:32] VITALS: BP 144/57
[2018-08-27 03:29] VITALS: BP 132/78
--- NOTE | 2018-08-27 04:51 | NUR ---
PATIENT IS ALERT AND ORIENTED. PATINET IS UP TIMES ONE. PATIENT IS ON NC 3L DURING THE DAY AND BIPAP AT HS. PATIENT HAS AN EXTERNAL FEMALE CATH. PATIENT HAS NOT HAD A BM FOR A COUPLE DAYS MIRALAX AND SUPPOSITORY ORDERED. PATIENT IS NOT ON ANY NARCOTICS. PATIENT IS CHRONIC A-FIB ON TELE. PATIENT HAS SOME SWELLING TO LT LLE. LEGS ELEVATED. PATIENT IS RESTING COMFORTABLEY NO COMPLAINTS OF PAIN. PATIENT IS PROGRESSING TO GOALS. WCM. PATIENT IS PENDING REHAB PEER TO PEER WAS PREFORMED YESTERDAY.
[2018-08-27 07:24] VITALS: BP 119/76
--- NOTE | 2018-08-27 09:58 | NUR ---
on-going assessment: CM REVIEWED CHART. CHRIS CONTACTED [facility] AT TO GET AN UPDATE ON EXPEDITED APPEAL#[id number]. CHRIS SPOKE WITH KRYSTLE AND SHE STATED THE DENIAL IS UPHELD, REF#[id number]. CM NOTIFIED PATIENTS DAUGHTER PHONG TO UPDATE. CHRIS ALSO SPOKE WITH VIBHA AT [facility] AND NOTIFIED AND SENT UPDATED CLINICAL REQUESTING THAT THEY SEEK INSURANCE AUTH FOR SNF TODAY. CM ALSO CONTACTED LIONEL AT [facility] [phone] TO NOTIFY WE ARE REQUESTING INSURANCE AUTH FOR SNF [facility]. CM WILL CONTINUE TO FOLLOW TO ASSIST NEEDED.
[2018-08-27 11:14] VITALS: BP 106/68
--- NOTE | 2018-08-27 12:17 | NUR ---
ASSUMED PATIENT CARE AT 0715. A&OX4. NO COMPLAINTS OF PAIN. BLE EDEMATOUS AND WEAPING. PATIENT SLIGHTLY WEAKER TODAY PER O.T. VOIDING PER COMMODE. IRA HOSE BLE. RLE WRAPPED WITH JUAN. CALLS APPROPRIATELY. INSURANCE DENIED REHAB STAY WHICH IS VERY UNFORTUNATE BECAUSE PATIENT WOULD BENEFIT GREATLY FROM REHAB. WAITING ON AUTH FOR [place]. CM WORKING ON DISCHARGE.
[2018-08-27 15:21] VITALS: BP 109/60
[2018-08-27] MEDS ORDERED: ADULT LOW DOSE81 MG PO (15:58)
[2018-08-27] MEDS ORDERED: IRON325 PO (15:58)
[2018-08-27] MEDS ORDERED: PREDNISONE 10 M10 MG PO (16:00)
== END 2018-08-27 16:36 | DRG 682 ==
LOC: ER 10:16 → 3W 12:02 → ICU 12:02 → 3W 08-14 19:00
PROVIDERS: Emergency Medicine; Internal Medicine; Nurse Practitioner Acute Care; ADMIT Hospitalist
PROC: 30233N1 Transfusion of Nonautologous Red Blood Cells into Peripheral Vein, Percutaneous Approach (ICD-10-PCS; principal; 2018-08-12)
PROC: 5A09357 Assistance with Respiratory Ventilation, Less than 24 Consecutive Hours, Continuous Positive Airway Pressure (ICD-10-PCS; 2018-08-14)
PROC: 5A09357 Assistance with Respiratory Ventilation, Less than 24 Consecutive Hours, Continuous Positive Airway Pressure (ICD-10-PCS; 2018-08-18)
PROC: 5A09357 Assistance with Respiratory Ventilation, Less than 24 Consecutive Hours, Continuous Positive Airway Pressure (ICD-10-PCS; 2018-08-19)
PROC: 5A09357 Assistance with Respiratory Ventilation, Less than 24 Consecutive Hours, Continuous Positive Airway Pressure (ICD-10-PCS; 2018-08-20)
PROC: 5A09357 Assistance with Respiratory Ventilation, Less than 24 Consecutive Hours, Continuous Positive Airway Pressure (ICD-10-PCS; 2018-08-23)
PROC: 5A09357 Assistance with Respiratory Ventilation, Less than 24 Consecutive Hours, Continuous Positive Airway Pressure (ICD-10-PCS; 2018-08-24)
PROC: 5A09357 Assistance with Respiratory Ventilation, Less than 24 Consecutive Hours, Continuous Positive Airway Pressure (ICD-10-PCS; 2018-08-25)
PROC: 5A09357 Assistance with Respiratory Ventilation, Less than 24 Consecutive Hours, Continuous Positive Airway Pressure (ICD-10-PCS; 2018-08-26)
PROC: 5A09357 Assistance with Respiratory Ventilation, Less than 24 Consecutive Hours, Continuous Positive Airway Pressure (ICD-10-PCS; 2018-08-27)
DX: N17.9 Acute kidney failure, unspecified (principal); J96.21 Acute and chronic respiratory failure with hypoxia; I50.33 Acute on chronic diastolic (congestive) heart failure; J96.22 Acute and chronic respiratory failure with hypercapnia; I13.0 Hypertensive heart and chronic kidney disease with heart failure and stage 1 through stage 4 chronic kidney disease, or unspecified chronic kidney disease; J44.1 Chronic obstructive pulmonary disease with (acute) exacerbation; D62 Acute posthemorrhagic anemia; K21.9 Gastro-esophageal reflux disease without esophagitis; M81.0 Age-related osteoporosis without current pathological fracture; F32.9 Major depressive disorder, single episode, unspecified; K44.9 Diaphragmatic hernia without obstruction or gangrene; I95.9 Hypotension, unspecified; I48.2 Chronic atrial fibrillation; G62.9 Polyneuropathy, unspecified; Z60.2 Problems related to living alone; N18.9 Chronic kidney disease, unspecified; I27.20 Pulmonary hypertension, unspecified; E87.70 Fluid overload, unspecified; Z90.49 Acquired absence of other specified parts of digestive tract; Z90.710 Acquired absence of both cervix and uterus; Z98.41 Cataract extraction status, right eye; Z85.51 Personal history of malignant neoplasm of bladder; Z88.6 Allergy status to analgesic agent; Z88.8 Allergy status to other drugs, medicaments and biological substances; Z87.891 Personal history of nicotine dependence; Z79.01 Long term (current) use of anticoagulants; Z79.82 Long term (current) use of aspirin; Z79.899 Other long term (current) drug therapy
CPT/HCPCS: 10078; 10779; 10879